=== PATIENT | female | born 1995 | race Caucasian/White ===

== ENCOUNTER 2022-09-15 08:36 | Inpatient (IN) ==
[2022-09-15] MEDS ORDERED: MEPERIDINE 50 MG/1 ML VIAL IV PRN (08:54)
[2022-09-15] MEDS ORDERED: CARBOPROST TROMETHAMINE 250 MCG/ML AMP IM PRN (08:54)
[2022-09-15] MEDS ORDERED: METHYLERGONOVINE 0.2 MG/1 ML AMP IM PRN (08:54)
[2022-09-15] MEDS ORDERED: OXYTOCIN/LR 20 UNIT/1,000 ML BAG IV ONE ×2 (08:54→19:34)
[2022-09-15] MEDS ORDERED: BUTORPHANOL 2 MG/ML VIAL IV PRN (08:54)
[2022-09-15] MEDS ORDERED: miSOPROStoL 200 MCG TABLET RECTAL PRN (08:54)
[2022-09-15] MEDS ORDERED: TRANEXAMIC ACID 1,000 MG in SODIUM CHLORIDE 0.9% 100 ML IV PRN (08:54)
[2022-09-15] MEDS ORDERED: ONDANSETRON 4 MG/2 ML VIAL IV PRN (08:54)
[2022-09-15] MEDS ORDERED: FAMOTIDINE 20 MG/2 ML VIAL IV ONE (08:57)
[2022-09-15] MEDS ORDERED: ePHEDrine 50 MG/ML VIAL IV PRN (08:57)
[2022-09-15] MEDS ORDERED: diphenhydrAMINE 50 MG/1 ML VIAL IV PRN (08:57)
[2022-09-15] MEDS ORDERED: PROMETHAZINE 25 MG/1 ML VIAL IM PRN (08:57)
[2022-09-15] MEDS ORDERED: CITRIC ACID/SODIUM CITRATE 30 ML UDCUP PO ONE (08:57)
[2022-09-15] MEDS ORDERED: hydrOXYzine HCL 25 MG/1 ML VIAL IM PRN (08:57)
[2022-09-15] MEDS ORDERED: NALOXONE 0.4 MG/ML VIAL IV PRN (08:57)
[2022-09-15] MEDS ORDERED: fentaNYL 2 MCG/ROPIV 0.2% EPID 100 ML EPIDURAL SCH (09:00)
[2022-09-15] MEDS ORDERED: OXYTOCIN/LR 20 UNIT/1,000 ML BAG IV SCH (09:00)
[2022-09-15] MEDS: LACTATED RINGERS 1,000 ML IV SCH ×2 (09:14→10:43)
[2022-09-15 09:37] LABS: Basophils % 0.4 % (0.0-0.8); Eosinophils # 0.1 10*3/uL (0.0-0.87); Eosinophils % 0.9 % (0.00-10.9); Hematocrit 36.5 VOL% (35.7-47.0); Hemoglobin 12.5 GM/DL (12.0-16.0); Immature Granulocytes % 0.9 %; Immature Granulocytes Absolute 0.07 #; Lymphocytes # 1.7 10*3/uL (1.4-4.0); Lymphocytes % 21.4 % (21.3-54.2); Mean Corpuscular HGB Conc 34.2 GM/DL (32-36); Mean Corpuscular Volume 90.3 FL (87-102); Mean Platelet Volume 10.2 FL (9.6-12.0); Monocytes # 0.5 10*3/uL (0.11-0.8); Monocytes % 5.8 % (1.7-12.7); Neutrophils % 70.6 % (38.7-73.9); Platelet Count 129 T/CUMM (130-400); Red Blood Count 4.04 MC/CUMM (3.8-5.5); White Blood Count 8.1 T/CUMM (4-12)
[2022-09-15 09:48] LABS: Alanine Aminotransferase 17 U/L (13-56); Albumin 3.1 G/DL (3.4-5.0); Alkaline Phosphatase 54 U/L (45-117); Aspartate Amino Transferase 14 U/L (0-37); Bilirubin,Total < 0.39 MG/DL (0.20-1.00); Blood Urea Nitrogen 4 MG/DL (7-18); Calcium 8.8 MG/DL (8.5-10.1); Carbon Dioxide 22 MMOL/L (21-32); Chloride 108 MMOL/L (98-107); Glucose 93 MG/DL (74-106); Osmolality,Calculated 273.5 MOS/KG (273-304); Potassium 3.5 MMOL/L (3.5-5.1); Sodium 139 MMOL/L (136-145); Total Protein 6.4 G/DL (6.4-8.2)
[2022-09-15 13:12] LABS: Mucus,Urine Occasional /LPF (Occasional); RBC,Urine 1 /HPF (0-4); Squamous Epithelial Cell,Urine Occasional /HPF (0-10)
[2022-09-15 13:14] LABS: Urine Appearance Clear (Clear); Urine Color Yellow (Yellow); Urine Specific Gravity 1.025 (1.001-1.035); Urine pH 6.5 (4.5-8.0)
[2022-09-15 13:15] LABS: Bilirubin,Urine Negative (Negative); Blood, Urine Negative (Negative); Glucose,Urine (UA) Negative (Negative); Ketones,Urine Negative (Negative); Nitrite,Urine Negative (Negative); Protein,Urine Negative (Negative); Urine Urobilinogen 0.2 eU/dL (<2.0)
[2022-09-15] MEDS ORDERED: fentaNYL 100 MCG/2 ML VIAL ONE (15:06)
[2022-09-15] MEDS ORDERED: ROPIVACAINE 0.5% 30 ML VIAL ONE (15:06)
[2022-09-15] MEDS ORDERED: LIDOCAINE 2% 5 ML VIAL ONE (15:50)
[2022-09-15] MEDS ORDERED: miSOPROStoL 200 MCG TABLET ONE (16:00)
[2022-09-15] MEDS ORDERED: CARBOPROST TROMETHAMINE 250 MCG/ML AMP IM ONE (16:00)
[2022-09-15] MEDS ORDERED: METHYLERGONOVINE 0.2 MG/1 ML AMP ONE (16:00)
[2022-09-15] MEDS ORDERED: TRANEXAMIC ACID 1,000 MG/10 ML VIAL ONE (16:00)
[2022-09-15 16:30] LABS: Cord Arterial Blood HCO3 22.5 MMOL/L
[2022-09-15 16:33] LABS: Cord Venous Blood HCO3 24.1 MMOL/L; Cord Venous Blood PCO2 36.7 MMHG
[2022-09-15] MEDS ORDERED: LANOLIN 50% CREAM 0.3 OZ TUBE TOP PRN (19:34)
[2022-09-15] MEDS ORDERED: oxyCODONE/ACETAMINOPHEN 5-325 MG TABLET PO PRN (19:34)
[2022-09-15] MEDS ORDERED: WITCH HAZEL PADS 100/JAR TOP PRN (19:34)
[2022-09-15] MEDS ORDERED: HYDROCORTISONE 2.5% RECTAL CREAM 30 GM TUBE TOP PRN (19:34)
[2022-09-15] MEDS ORDERED: BISACODYL 10 MG SUPP RECTAL PRN (19:34)
[2022-09-15] MEDS ORDERED: DIPH/TET/ACEL PERT BOOSTER VACCINE 0.5 ML VIAL IM ONE (19:34)
[2022-09-15] MEDS ORDERED: RHO(D) IMMUNE GLOBULIN 300 MCG SYRINGE IM ONE (19:34)
[2022-09-15] MEDS ORDERED: ACETAMINOPHEN 325 MG TABLET PO PRN (19:34)
[2022-09-15] MEDS ORDERED: MEASLES/MUMPS/RUBELLA VACCINE 0.5 ML VIAL SUBCUT ONE (19:34)
[2022-09-15] MEDS: IBUPROFEN 800 MG TABLET PO PRN (19:46)
[2022-09-15] MEDS: oxyCODONE/ACETAMINOPHEN 5-325 MG TABLET PO PRN (19:47)
[2022-09-15] MEDS: BENZOCAINE 20%/MENTHOL 0.5% SPRAY 56 GM CAN TOP PRN (20:06)
[2022-09-15] MEDS: DOCUSATE SODIUM 100 MG CAPSULE PO SCH (22:01)
[2022-09-16] MEDS: oxyCODONE/ACETAMINOPHEN 5-325 MG TABLET PO PRN ×3 (00:27→21:51)
[2022-09-16 05:42] LABS: Basophils % 0.3 % (0.0-0.8); Eosinophils # 0.1 10*3/uL (0.0-0.87); Hematocrit 35.5 VOL% (35.7-47.0); Immature Granulocytes % 0.6 %; Immature Granulocytes Absolute 0.06 #; Lymphocytes # 2.1 10*3/uL (1.4-4.0); Lymphocytes % 20.2 % (21.3-54.2); Mean Corpuscular HGB Conc 33.8 GM/DL (32-36); Mean Corpuscular Volume 93.2 FL (87-102); Mean Platelet Volume 10.4 FL (9.6-12.0); Monocytes # 0.6 10*3/uL (0.11-0.8); Monocytes % 5.8 % (1.7-12.7); Neutrophils % 72.1 % (38.7-73.9); Platelet Count 116 T/CUMM (130-400); Red Blood Count 3.81 MC/CUMM (3.8-5.5); Red Cell Distribution Width 14.8 % (9.3-17.3); White Blood Count 10.2 T/CUMM (4-12)
[2022-09-16] MEDS: IBUPROFEN 800 MG TABLET PO PRN ×3 (06:59→21:50)
[2022-09-16] MEDS: DOCUSATE SODIUM 100 MG CAPSULE PO SCH ×2 (10:04→20:31)
[2022-09-16] MEDS: BENZOCAINE 20%/MENTHOL 0.5% SPRAY 56 GM CAN TOP PRN (20:32)
[2022-09-17] MEDS: IBUPROFEN 800 MG TABLET PO PRN (05:52)
[2022-09-17] MEDS: oxyCODONE/ACETAMINOPHEN 5-325 MG TABLET PO PRN (05:53)
[2022-09-17 07:34] VITALS: BP 98/53
[2022-09-17] MEDS: DOCUSATE SODIUM 100 MG CAPSULE PO SCH (08:40)
== END 2022-09-17 10:30 | disposition home or self-care (01) | DRG 560 ==
LOC: N.LD 08:36 → N.OB 19:33
PROVIDERS: ADMIT Obstetrics & Gynecology; ATTEND Obstetrics & Gynecology